=== PATIENT | female | born 1990 | race Caucasian/White ===

== ENCOUNTER → 2023-10-31 10:50 | Outpatient (REF) | payer BC, SELFPAY | LOC: HWRAD 10:50 | PROVIDERS: ATTENDING PHYSICIAN Obstetrics & Gynecology; FAMILY PHYSICIAN Family Medicine | DX: Z30.430 Encounter for insertion of intrauterine contraceptive device (principal) | CPT/HCPCS: 76830; 76856 ==

== ENCOUNTER → 2023-11-11 14:25 | Outpatient (REF) | payer BC, SELFPAY | LOC: RAD 14:25 | PROVIDERS: ATTENDING PHYSICIAN Obstetrics & Gynecology | DX: Z97.5 Presence of (intrauterine) contraceptive device (principal) | CPT/HCPCS: 74018 ==

== ENCOUNTER 2023-11-22 06:23 | Day surgery (SDC) | payer BC, SELFPAY ==
[2023-11-20 08:25] VITALS: BMI 18.7
[2023-11-20 08:49] LABS: % Basophils 0.8 % (0-2); % Eosinophils 3.3 % (0-6); % Immature Granulocytes 0.3 % (0-0.5); % Lymphocytes 38.9 % (20.5-51.1); % Monocytes 5.9 % (1.7-9.3); % Neutrophils 50.8 % (42.2-75.2); Absolute Basophils 0.1 10^3/uL (0-0.2); Absolute Eosinophils 0.2 10^3/uL (0-0.7); Absolute Lymphocytes 2.6 10^3/uL (1.2-3.4); Absolute Monocytes 0.4 10^3/uL (0.1-0.6); Absolute Neutrophils 3.4 10^3/uL (1.4-6.5); Hematocrit 41.9 % (37.0-47.0); Hemoglobin 13.4 g/dL (12.0-16.0); Mean Corpuscular Hgb 28.8 pg (27.0-31.0); Mean Corpuscular Volume 90.1 fL (81.0-99.0); Mean Platelet Volume 11.6 fL (7.4-10.4); Nucleated Red Blood Cells % 0 %; Platelet Count 208 10^3/uL (130-400); Red Blood Cell Count 4.65 10^6/uL (4.20-5.40); Red Cell Dist. Width 12.6 % (11.5-14.5); White Blood Cell Count 6.6 10^3/uL (4.8-10.8)
[2023-11-20 09:23] LABS: INR 1.11; PT 14.3 Sec (11.4-14.6)
[2023-11-20 09:24] LABS: APTT 27.4 Sec (23.4-35.0)
[2023-11-22] VITALS (9 sets, daily range): BP systolic 93–111; BP diastolic 51–69; BMI 18.7
== END 2023-11-22 16:15 | disposition home or self-care (01) ==
LOC: SDS 06:23
PROVIDERS: ATTENDING PHYSICIAN Obstetrics & Gynecology; FAMILY PHYSICIAN Family Medicine
DX: T83.32XA Displacement of intrauterine contraceptive device, initial encounter (principal); Y93.9 Activity, unspecified
CPT/HCPCS: 49320; 36415; 85025; 85610; 85730

== ENCOUNTER → 2024-06-17 11:08 | Outpatient (REF) | payer BC, SELFPAY | LOC: RAD 11:08 | PROVIDERS: ATTENDING PHYSICIAN Obstetrics & Gynecology | DX: O26.859 Spotting complicating pregnancy, unspecified trimester (principal) | CPT/HCPCS: 76801; 76817 ==

== ENCOUNTER → 2024-07-06 11:50 | Outpatient (REF) | payer BC, SELFPAY | LOC: PNTC 11:50 | PROVIDERS: ATTENDING PHYSICIAN Obstetrics & Gynecology | DX: O46.90 Antepartum hemorrhage, unspecified, unspecified trimester (principal); Q79.3 Gastroschisis | CPT/HCPCS: 76801; 76817 ==

== ENCOUNTER → 2024-07-20 13:09 | Outpatient (REF) | payer BC, SELFPAY | LOC: PNTC 13:09 | PROVIDERS: ATTENDING PHYSICIAN Obstetrics & Gynecology | DX: O46.90 Antepartum hemorrhage, unspecified, unspecified trimester (principal); Q79.3 Gastroschisis | CPT/HCPCS: 36415; 76801 ==

== ENCOUNTER → 2024-07-24 14:13 | Outpatient (REF) | payer BC, SELFPAY | LOC: REG 14:13 | PROVIDERS: ATTENDING PHYSICIAN Student in an Organized Health Care Education/Training Program | DX: Z34.81 Encounter for supervision of other normal pregnancy, first trimester (principal) | CPT/HCPCS: 36415; 86850; 86900; 86901; J2790 ==

== ENCOUNTER → 2024-08-10 14:19 | Outpatient (REF) | payer BC, SELFPAY | LOC: PNTC 14:19 | PROVIDERS: ATTENDING PHYSICIAN Obstetrics & Gynecology | DX: O46.90 Antepartum hemorrhage, unspecified, unspecified trimester (principal) | CPT/HCPCS: 76805 ==

== ENCOUNTER → 2024-09-10 08:13 | Outpatient (REF) | payer BC, SELFPAY | LOC: PNTC 08:13 | PROVIDERS: ATTENDING PHYSICIAN Obstetrics & Gynecology | DX: O20.8 Other hemorrhage in early pregnancy (principal); O36.8990 Maternal care for other specified fetal problems, unspecified trimester, not applicable or unspecified | CPT/HCPCS: 76811; 76817 ==

== ENCOUNTER → 2024-11-04 13:28 | Outpatient (REF) | payer BC, SELFPAY | LOC: PNTC 13:28 | PROVIDERS: ATTENDING PHYSICIAN Obstetrics & Gynecology | DX: O09.522 Supervision of elderly multigravida, second trimester (principal) | CPT/HCPCS: 36415; 86850; 86900; 86901; 96372; J2790 ==

== ENCOUNTER 2025-01-12 20:55 | Inpatient (IN) | payer BC, SELFPAY ==
[2025-01-12 20:59] VITALS: BMI 24.2
[2025-01-12 21:14] VITALS: BP 103/67
[2025-01-12] MEDS: LR 1000 IV ×2 (21:30→22:43)
[2025-01-12] MEDS: PENICILLIN 110 UNITS IV (21:35)
[2025-01-12 21:44] LABS: Hematocrit 34.1 % (37.0-47.0); Hemoglobin 11.6 g/dL (12.0-16.0); Mean Corp Hgb Conc. 34.0 g/dL (33.0-37.0); Mean Corpuscular Volume 84.8 fL (81.0-99.0); Nucleated Red Blood Cells % 0 %; Platelet Count 175 10^3/uL (130-400); Red Cell Dist. Width 13.8 % (11.5-14.5)
[2025-01-12] MEDS: SUBLIMAZE 100 MCG EPIDURAL (22:22)
[2025-01-12] MEDS: FENTANYL/BUPIVACAINE 100 EPIDURAL (22:22)
[2025-01-13] MEDS: PITOCIN 30 UNITS/NSS 500 ML IV (00:43)
[2025-01-13] MEDS: PRENATAL PLUS 1 TABLET PO (07:58)
[2025-01-13] MEDS: COLACE 100 MG PO ×2 (08:00→19:42)
[2025-01-13] MEDS: MOTRIN 600 MG PO (11:49)
[2025-01-14] MEDS: MOTRIN 600 MG PO (04:22)
[2025-01-14 05:06] LABS: Hematocrit 34.7 % (37.0-47.0); Hemoglobin 11.5 g/dL (12.0-16.0)
[2025-01-14] MEDS: COLACE 100 MG PO (08:43)
[2025-01-14] MEDS: PRENATAL PLUS 1 TABLET PO (08:43)
[2025-01-15 13:02] LABS: Syphilis/T. pallidum Ab Reflex Negative (Negative)
== END 2025-01-14 14:15 | disposition home or self-care (01) | DRG 807 ==
LOC: LDRP 20:55
PROVIDERS: ADMITTING PHYSICIAN Obstetrics & Gynecology
PROC: 10E0XZZ Delivery of Products of Conception, External Approach (ICD-10-PCS; 2025-01-13)
DX: O99.824 Streptococcus B carrier state complicating childbirth (principal); Z37.0 Single live birth; Z3A.38 38 weeks gestation of pregnancy; Z88.7 Allergy status to serum and vaccine; Z91.048 Other nonmedicinal substance allergy status
CPT/HCPCS: 85014; 85018; 85025; 86780; 86850; 86870; 86900; 86901